=== PATIENT | female | born 1935 | race Caucasian/White ===

== ENCOUNTER 2017-06-10 12:59 | Inpatient (IN) | payer MEDICARE, OTHER ==
[~2017-06-10] VITALS: Ht 157.5 cm; Wt 83.2 kg
[2017-06-10 13:24] LABS: BASOPHILS % (AUTO) 0.7 % (0.0-5.0); EOSINOPHILS % (AUTO) 2.3 % (0.0-8.0); HEMATOCRIT 39.4 % (36-48); LYMPHOCYTES % (AUTO) 23.1 % (21.0-51.0); MEAN CORPUSCULAR HEMOGLOBIN 29.9 pg (27.0-33.0); MEAN CORPUSCULAR HGB CONC 34.3 g/dL (32.0-36.0); MEAN CORPUSCULAR VOLUME 87.3 fL (79-99); MONOCYTES % (AUTO) 12.7 % (3.0-13.0); NEUTROPHILS % (AUTO) 61.2 % (40.0-77.0); NUCLEATED RED BLOOD CELLS 0.1 % (0.0-0.19); PLATELET COUNT (AUTO) 534 K/uL (130-400); RED BLOOD CELL COUNT(AUTO) 4.52 MIL/uL (4.00-5.50); RED CELL DISTRIBUTION WIDTH 13.9 % (11.0-15.5); WHITE BLOOD COUNT (AUTO) 4.7 K/uL (4.8-10.8)
[2017-06-10 13:33] LABS: CREATININE 2.4 mg/dL (0.5-1.5); POTASSIUM 4.7 mmol/L (3.5-5.1)
[2017-06-10 13:47] LABS: ALBUMIN 2.9 g/dL (3.5-5.0); BILIRUBIN,TOTAL 0.5 mg/dL (0.2-1.0); CREATINE KINASE MB 1.2 ng/mL (0.5-3.6); TOTAL PROTEIN, SERUM 8.1 g/dL (6.0-8.3)
[2017-06-10 13:55] LABS: INR 1.18 (0.85-1.15); PARTIAL THROMBOPLASTIN TIME 34.7 SEC (26.3-35.5); PROTHROMBIN TIME 12.3 SEC (9.6-11.6)
[2017-06-10 18:19] LABS: APPEARANCE,URINE Cloudy (CLEAR); BILIRUBIN,URINE Negative (NEGATIVE); COLOR,URINE Dark Yellow (YELLOW); GLUCOSE, URINE (UA) Negative (NEGATIVE); KETONES,URINE Trace mg/dL (NEGATIVE); LEUKOCYTE ESTERASE ,URINE Moderate (NEGATIVE); NITRATE,URINE Negative (NEGATIVE); OCCULT BLOOD,URINE Negative (NEGATIVE); PROTEIN,URINE POS 1+ (NEGATIVE)
[2017-06-10 19:36] LABS: BACTERIA,URINE Many /HPF (None Seen); RBC,URINE None Seen /HPF (0-1)
[2017-06-10 22:00] VITALS: BP 128/62
[2017-06-10] MEDS ORDERED: APIX5TAB4 PO (23:01)
[2017-06-10] MEDS ORDERED: PANT40TA25 PO (23:02)
[2017-06-10] MEDS ORDERED: METF500T6 PO (23:02)
[2017-06-10] MEDS ORDERED: VALS160T28 PO (23:04)
[2017-06-10] MEDS ORDERED: METO25TA6 PO (23:05)
[2017-06-10] MEDS ORDERED: FAMO20TA8 PO (23:06)
[2017-06-11] VITALS (7 sets, daily range): BP systolic 94–145; BP diastolic 43–65
[2017-06-11] MEDS ORDERED: CEFTRIAXONE 1GM/D5W 50ML 50 ML IV SCH (01:00)
[2017-06-11] MEDS ORDERED: LACTULOSE 20 GM/30 ML UDCUP PO PRN (01:00)
[2017-06-11] MEDS ORDERED: DEXTROSE 50%-WATER 50 ML DISP.SYRIN IV PRN (01:00)
[2017-06-11] MEDS ORDERED: ONDANSETRON HCL 4 MG/2 ML VIAL IVP PRN (01:00)
[2017-06-11] MEDS ORDERED: HYDRALAZINE HCL 20 MG/ML VIAL IV PRN (01:00)
[2017-06-11] MEDS ORDERED: IPRATROPIUM/ALBUTEROL SULFATE 3 ML SOLUTION IH PRN (01:00)
[2017-06-11] MEDS ORDERED: MORPHINE SULFATE 2 MG/ML 1ML SYG IVP PRN ×2 (01:00)
[2017-06-11] MEDS ORDERED: GLUCAGON 1MG KIT 1 MG ML IM PRN (01:00)
[2017-06-11] MEDS: CEFTRIAXONE SODIUM 1 GM IVP SCH (03:01)
[2017-06-11 05:06] LABS: HEMATOCRIT 35.3 % (36-48); MEAN CORPUSCULAR HEMOGLOBIN 30.7 pg (27.0-33.0); MEAN CORPUSCULAR HGB CONC 35.4 g/dL (32.0-36.0); MEAN CORPUSCULAR VOLUME 86.8 fL (79-99); NUCLEATED RED BLOOD CELLS 0.1 % (0.0-0.19); PLATELET COUNT (AUTO) 491 K/uL (130-400); RED BLOOD CELL COUNT(AUTO) 4.07 MIL/uL (4.00-5.50); RED CELL DISTRIBUTION WIDTH 13.7 % (11.0-15.5); WHITE BLOOD COUNT (AUTO) 3.9 K/uL (4.8-10.8)
[2017-06-11 05:13] LABS: CREATININE 2.2 mg/dL (0.5-1.5); POTASSIUM 4.3 mmol/L (3.5-5.1)
[2017-06-11] MEDS: PANTOPRAZOLE SODIUM 40 MG TABLET.DR PO SCH (06:11)
[2017-06-11] MEDS: INSULIN HUMULIN R 100 UNIT/ML 3ML SQ SCH ×4 (07:30→20:59)
[2017-06-11] MEDS: METOPROLOL TARTRATE 25 MG TAB PO SCH ×2 (09:31→20:26)
[2017-06-11] MEDS: APIXABAN 5 MG TABLET PO SCH ×2 (09:31→20:26)
[2017-06-11 15:42] LABS: ABG BASE EXCESS -3.1 mmol/L (-2.0-3.0); ABG HCO3 19.8 mmol/L (21.0-28.0); ABG OXYGEN SATURATION 93.6 % (95.0-99.0); ABG PCO2 30 mmHg (32-45)
[2017-06-12 00:24] VITALS: BP 106/58
[2017-06-12] MEDS: CEFTRIAXONE SODIUM 1 GM IVP SCH (02:09)
[2017-06-12 03:45] VITALS: BP 98/58
[2017-06-12] MEDS: ACETAMINOPHEN 325 MG TAB PO PRN ×2 (04:11→14:00)
[2017-06-12 04:41] LABS: HEMATOCRIT 35.3 % (36-48); MEAN CORPUSCULAR HEMOGLOBIN 29.8 pg (27.0-33.0); MEAN CORPUSCULAR HGB CONC 34.3 g/dL (32.0-36.0); MEAN CORPUSCULAR VOLUME 86.7 fL (79-99); NUCLEATED RED BLOOD CELLS 0.1 % (0.0-0.19); PLATELET COUNT (AUTO) 520 K/uL (130-400); RED BLOOD CELL COUNT(AUTO) 4.07 MIL/uL (4.00-5.50); RED CELL DISTRIBUTION WIDTH 13.5 % (11.0-15.5)
[2017-06-12 04:45] LABS: ALBUMIN 2.4 g/dL (3.5-5.0); BILIRUBIN,TOTAL 0.3 mg/dL (0.2-1.0); CREATININE 1.8 mg/dL (0.5-1.5); POTASSIUM 4.1 mmol/L (3.5-5.1); TOTAL PROTEIN, SERUM 6.9 g/dL (6.0-8.3)
[2017-06-12] MEDS: PANTOPRAZOLE SODIUM 40 MG TABLET.DR PO SCH (06:51)
[2017-06-12] MEDS: INSULIN HUMULIN R 100 UNIT/ML 3ML SQ SCH ×4 (06:51→21:03)
[2017-06-12 07:00] VITALS: BP 110/57
[2017-06-12 07:48] LABS: ABG BASE EXCESS -0.8 mmol/L (-2.0-3.0); ABG HCO3 22.6 mmol/L (21.0-28.0); ABG OXYGEN SATURATION 94.2 % (95.0-99.0); ABG PCO2 34 mmHg (32-45)
[2017-06-12] MEDS: APIXABAN 5 MG TABLET PO SCH ×2 (09:30→20:15)
[2017-06-12] MEDS: METOPROLOL TARTRATE 25 MG TAB PO SCH ×2 (09:30→20:15)
[2017-06-12 11:00] VITALS: BP 138/94
[2017-06-12] MEDS: PREDNISONE 20 MG TABLET PO SCH ×2 (11:31→20:15)
[2017-06-12 16:00] VITALS: BP 114/73
[2017-06-12 20:00] VITALS: BP 113/64
[2017-06-13] VITALS (7 sets, daily range): BP systolic 121–148; BP diastolic 63–79
[2017-06-13] MEDS: CEFTRIAXONE SODIUM 1 GM IVP SCH (02:16)
[2017-06-13] MEDS: INSULIN HUMULIN R 100 UNIT/ML 3ML SQ SCH ×4 (06:33→21:00)
[2017-06-13] MEDS: PANTOPRAZOLE SODIUM 40 MG TABLET.DR PO SCH (06:37)
[2017-06-13] MEDS: APIXABAN 5 MG TABLET PO SCH ×2 (08:55→20:23)
[2017-06-13] MEDS: METOPROLOL TARTRATE 25 MG TAB PO SCH ×2 (08:55→20:23)
[2017-06-13] MEDS: PREDNISONE 20 MG TABLET PO SCH (08:55)
[2017-06-13] MEDS: SULFAMETHOX-TMP DS 800/160 TAB PO SCH (20:23)
[2017-06-14 03:05] VITALS: BP 143/74
[2017-06-14 06:02] LABS: CREATININE 1.6 mg/dL (0.5-1.5)
[2017-06-14] MEDS: INSULIN HUMULIN R 100 UNIT/ML 3ML SQ SCH (06:37)
[2017-06-14] MEDS: PANTOPRAZOLE SODIUM 40 MG TABLET.DR PO SCH (07:00)
[2017-06-14 08:29] VITALS: BP 132/71
[2017-06-14] MEDS ORDERED: PREDNISONE 20 MG TABLET PO SCH (09:00)
[2017-06-14] MEDS: METOPROLOL TARTRATE 25 MG TAB PO SCH (09:00)
[2017-06-14] MEDS: APIXABAN 5 MG TABLET PO SCH (11:04)
[2017-06-14] MEDS: SULFAMETHOX-TMP DS 800/160 TAB PO SCH (11:04)
[2017-06-14 12:00] VITALS: BP 152/82
== END 2017-06-14 13:05 | disposition home or self-care (01) | DRG 683 ==
LOC: EDH 12:59 → EDHIP 18:22 → OBSVTOIN 18:22 → 3CH 21:21
PROVIDERS: ADMIT Family Medicine; ATTEND Family Medicine
DX: N17.9 Acute kidney failure, unspecified (principal); J81.1 Chronic pulmonary edema; D68.59 Other primary thrombophilia; E11.21 Type 2 diabetes mellitus with diabetic nephropathy; D68.2 Hereditary deficiency of other clotting factors; E11.40 Type 2 diabetes mellitus with diabetic neuropathy, unspecified; E11.22 Type 2 diabetes mellitus with diabetic chronic kidney disease; N39.0 Urinary tract infection, site not specified; I27.82 Chronic pulmonary embolism; E44.1 Mild protein-calorie malnutrition; J44.9 Chronic obstructive pulmonary disease, unspecified; N18.3 Chronic kidney disease, stage 3 (moderate); E66.01 Morbid (severe) obesity due to excess calories; R09.02 Hypoxemia; Z79.01 Long term (current) use of anticoagulants; I12.9 Hypertensive chronic kidney disease with stage 1 through stage 4 chronic kidney disease, or unspecified chronic kidney disease; E78.5 Hyperlipidemia, unspecified; K29.70 Gastritis, unspecified, without bleeding; Z68.30 Body mass index [BMI] 30.0-30.9, adult; Z87.891 Personal history of nicotine dependence
CPT/HCPCS: 36415; 36600; 71045; 71250; 76770; 78582; 80048; 80053; 81001; 82550; 82553; 82803; 82948; 83880; 84484; 85025; 85027; 85610; 85730; 93005; 93306; 93970; 94664; 94760; 97039; A4218; A9540; A9558; J0696; J1815